=== PATIENT | female | born 1990 ===

== ENCOUNTER 2017-05-11 11:26 | Emergency (ER) | payer MEDICAID ==
[2017-05-11 12:33] VITALS: BMI 35.6
[2017-05-11 14:07] LABS: ALB/GLOB RATIO 1.1 (1.0-2.1); ALKALINE PHOSPHATASE 79 U/L (38-126); ALT/SGPT 19 U/L (9-52); AST/SGOT 20 U/L (14-36); BILIRUBIN,TOTAL 0.3 mg/dl (0.2-1.3); BLOOD UREA NITROGEN 8 mg/dl (7-17); CALCIUM 8.5 mg/dL (8.4-10.2); CARBON DIOXIDE 22 mmol/L (22-30); CHLORIDE 106 mmol/L (98-107); GFR AFRICAN-AMERICAN > 60; GLUCOSE,RANDOM 78 mg/dL (65-105); POTASSIUM 4.1 MMOL/L (3.6-5.0); SODIUM 137 mmol/l (132-148); TOTAL PROTEIN 6.6 G/DL (6.3-8.2)
[2017-05-11 14:13] LABS: HEMATOCRIT 34.5 % (34.0-47.0); MEAN CELL VOLUME 94.2 fl (81.0-99.0); MEAN CORPUSCULAR HEMOGLOBIN 32.4 pg (27.0-31.0); MEAN CORPUSCULAR HGB CONC 34.4 g/dL (33.0-37.0); RED CELL DISTRIBUTION WIDTH 13.4 % (11.5-14.5); WHITE BLOOD COUNT 8.1 K/uL (4.8-10.8)
--- NOTE | 2017-05-11 14:32 | OBHP ---
Datetime: 05/11/2017 13:37 IP Adm Impression: , intrauterine IP Adm Impression Other: evaluate for placental abruption s/p fall IP Admit Plan: Observation/Evaluation Admit Comment, IP Provider: 26 y/o at 32w4d EDC 07/02/17 by LMP 09/25/16 c/w 2nd TM u/s. Here 1 day after tripping and falling on street, landing on R side of body. +fm, no lof, no vb, no ctx. P atient broke fall with R side of body, R arm and R leg, did not sustain direct trauma to abdomen. Did n't come in right away because she felt fine, this morning she woke up with pain on R knee, R hip and R arm. She also felt low pelvic presssure, no contractions, no pelvic pain. Patient denies vaginal b leeding. PNC: [facility] Dr. Tala Guy, tx of care at 15wks, I reviewed the records and they are up to date PNI: 1. hx of prior myomectomy 2013, patient planned to have primary c/s at 38wks with Dr. Harmon 2. hypothyroidism, well controlled with levothyroxine 100mcg daily 3. lived and traveled to [place] during , Zika test declined by [facility] 4. pap NILM/HPV pos 2013 (patient 23yo), Negative pap 2014 and 2015 as per patient. Current Pap 2016 NILM HPV positive (16/18 negative)- Repeat pap 11/2017 5. UTI completed abx, DEBORAH neg 12/2016 PNL: O+, hiv neg, rpr nr, RI, hbsag neg, H/H 11.3/33.2, TSH 0.97, FT4 0.85 PMhx: hypothyroidism PShx: myomectomy 2013 All: denies Meds: levothyroxine 100mcg daily Social Hx: denies toxic habits x 3, not working, denies DV Exam: see above A/P: 32w4d here s/p mechanical fall r/o abruption 1. Clinically stable, check U/S for placenta visualization, NST reactive, check labs for fibrinoge n and coags 2. Pelvic pressure, not deb, check ua/ucx 3. Bony pain on R knee, check xray with abd shield 4. Pending testing, anticipate DC home with outpatient f/u. Pelvic Type - PN: Not Done Extremities - PN: Abnormal Abdomen - PN: Normal Back - PN: Normal Breast - PN: Not Done Lungs - PN: Normal Heart - PN: Normal Thyroid - PN: Not Done Neurologic - PN: Normal HEENT - PN: Normal General - PN: Normal FHR - Baseline A Provider: 140 Membranes, Provider: Intact Contraction Comments Provider: None Comments, ACOG Physical Exam: tenderness on R upper arm on muscle no bony tenderness tenderness on R knee patella and lateral aspect of joint, stable joint R hip FROM, nontender IP Hx Assessment: The History has been Reviewed and is Current IP Chief Complaint: Maternal discomfort; Trauma/Fall NICHD Variability Prov Fetus A: Moderate 6-25bpm NICHD Accel Fetus A IP Provider: 15X15 FHR Category Provider Fetus A: Category I NICHD Decel Fetus A IP Provider: None Genitourinary Exam: Not Done DTRs - PN: Not Done
[2017-05-11 14:38] LABS: PARTIAL THROMBOPLASTIN TIME 27.8 Seconds (25.6-37.1)
--- NOTE | 2017-05-11 15:39 | US ---
PROCEDURE: OB Pelvic Ultrasound HISTORY: 32W4D s/p fall r/o placenta abruption COMPARISON: None available. FINDINGS: Intrauterine gestation is identified with imaging performed to assist in biophysical profile performance. Positive physical profile score is 8/8. breathing movements, 2. movements, 2. tones, 2. Amniotic fluid, 2 Amniotic fluid index measures 16.45 cm. Cardiac activity is recorded 134.6 beats per minute. A fundal placenta is appreciated as imaged without definite placental abruption appreciated. IMPRESSION: A single viable intrauterine gestation is identified in cephalic lie with a fundal placenta and no definite evidence of a placental abruption at this time. Biophysical profile was the primary reason for this examination with standard biometry and anatomical survey not performed. Biophysical profile measures 8/8. Details listed above. Follow-up standard obstetric ultrasound can be performed as clinically warranted.
[2017-05-11 15:55] LABS: RBC URINE 1 /hpf (0-3); URINE BILIRUBIN NEGATIVE (NEGATIVE); URINE BLOOD NEGATIVE (NEGATIVE); URINE COLOR YELLOW (YELLOW); URINE GLUCOSE (UA) NEG (Normal); URINE KETONE NEGATIVE (NEGATIVE); URINE LEUKOCYTE ESTERASE NEG Leu/uL (Negative); URINE PROTEIN NEGATIVE (NEGATIVE); URINE UROBILINOGEN 0.2-1.0 mg/dL (0.2-1.0); WBC URINE 1 /hpf (0-5)
--- NOTE | 2017-05-11 16:39 | OBHP ---
Datetime: 05/11/2017 16:36 IP Admit Plan: Discharge home Admit Comment, IP Provider: patient re-evaluated, denies any contractions, abd pain or pressure. BPP 8/8 and reactive NST No sign of placental abruption in u/s or labs. Strict kickcount, PTL and abrution precautions given to patient. xray of knee not back yet, will follow up outpatient. patient ambulating without difficulty. has f/u appt with PMD in 1 week. DC home
--- NOTE | 2017-05-11 17:12 | RAD ---
PROCEDURE: Right Knee Radiographs. HISTORY: s/p fall, tender knee cap COMPARISON: None. FINDINGS: BONES: Normal. No fracture. JOINTS: Normal. No osteoarthritis. JOINT EFFUSION: None. OTHER FINDINGS: None. IMPRESSION: Normal radiographs of the right knee.
[2017-05-12 01:39] VITALS: BP 105/58; PULSE 69; RESP 20; TEMP 98.2; O2SAT 100
== END 2017-05-11 17:00 | disposition home or self-care (01) ==
LOC: H.EROB2 11:26
DX: O26.93 Pregnancy related conditions, unspecified, third trimester (principal); M25.561 Pain in right knee; Z04.3 Encounter for examination and observation following other accident; W01.0XXA Fall on same level from slipping, tripping and stumbling without subsequent striking against object, initial encounter; Y92.410 Unspecified street and highway as the place of occurrence of the external cause; Z3A.32 32 weeks gestation of pregnancy

== ENCOUNTER 2017-06-20 07:29 | Inpatient (IN) | payer MEDICAID ==
[2017-06-20] MEDS: Lactated Ringer's 1,000 ML IV SCH ×2 (07:30→08:05)
[2017-06-20 07:57] VITALS: O2SAT 99
[2017-06-20] MEDS ORDERED: ceFAZolin IV 2 gm in Dextrose 2 GM/50 ML BAG IVPB ONE (08:00)
[2017-06-20] MEDS ORDERED: Oxytocin 30 UNITS in Sodium Chloride 0.9% 500 ML IV SCH (08:00)
[2017-06-20 08:13] LABS: BASO # 0.1 K/uL (0.0-0.2); EOS # 0.2 K/uL (0.0-0.7); EOS % 1.9 % (0.0-4.0); HEMATOCRIT 39.2 % (34.0-47.0); LYMPH # 1.7 K/uL (1.0-4.3); LYMPH % 19.4 % (20.0-40.0); MEAN CELL VOLUME 94.6 fl (81.0-99.0); MEAN CORPUSCULAR HEMOGLOBIN 31.2 pg (27.0-31.0); MEAN PLATELET VOLUME 11.3 fl (7.2-11.7); MONO # 0.7 K/uL (0.0-0.8); MONO % 7.7 % (0.0-10.0); NEUT # 6.1 K/uL (1.8-7.0); NRBC % 0.1 % (0.0-0.0); RED CELL DISTRIBUTION WIDTH 14.2 % (11.5-14.5); WHITE BLOOD COUNT 8.7 K/uL (4.8-10.8)
[2017-06-20] MEDS ORDERED: Phenylephrine 10 mg/ml Inj ONE (09:33)
[2017-06-20] MEDS ORDERED: Oxycodone/Acetaminophen 5/325 mg Tab PO PRN ×4 (10:54→14:20)
[2017-06-20] MEDS ORDERED: DiphenhydrAMINE 50 mg/ml Inj IVP PRN ×2 (10:54→14:20)
[2017-06-20] MEDS ORDERED: Morphine 5 MG/ML SYRINGE IV PRN (10:54)
--- NOTE | 2017-06-20 11:27 | OBADHP ---
Datetime: 06/20/2017 07:36 Admit Comment, IP Provider: 26 yr at 38.2 wks GA, hx fundal myomectomy, hypothyroidism on synth roid, obesity, AC measuring 2 weeks ahead, presents to L_D for scheduled primary . Pat ient denies vaginal bleeding, leakage of fluid or contractions. + movement. Denies any complica tion throughout this . labs: Rubella Immune, blood O +, Rh positive, Hep B negative, 3rd tri labs wnl: HIV neg, RPR nonreactive, PPD negative, Gc/Ch neg/neg, GBS negative ObGynHx: pap NILM HPV positive in 2013 and 11/2016, 1 x SAB PMHx: hypothyroidism, obesity PSurgHx: fundal myomectomy 2013 SocHx: denies Etoh, drugs and smoking FMHx: mother HTN Medications: Synthroid 100 mcg PO QD Allergies: NKDA PE: General: in no acute distress HEENT: normocephalic, atraumatic, PERRL, EOMI Cardiovascular: normal S1 S2, no murmurs/rubs or gallops Lungs: clear to auscultation bilaterally Abd: normal bowel sounds, nontender Ext: trace LE edema bilaterally Monitoring: FHR 130 bpm with moderate variability 6-25 bpm, accelerations 15x15, Category I tracing A: 26 yr at 38.2 wks GA, hx fundal myomectomy, hypothyroidism on synthroid, obesity, AC measuring 2 weeks ahead, presents to L_D for scheduled primary for hx fundal myomectomy. P: -Admit to labor and delivery -NPO, IV insertion, 2L LR, CBC, Type and screen -Continuous monitoring -Anesthesia consult -Ancef 2gm 60 min prior to , SCD's, Surgical prep -Influenza vaccine and TDaP vaccine Tala Guy M.D. PGY2 Extremities - PN: Normal Abdomen - PN: Normal Back - PN: Normal Lungs - PN: Normal Heart - PN: Normal Thyroid - PN: Normal Neurologic - PN: Normal HEENT - PN: Normal General - PN: Normal Presentation-Admit: Vertex FHR - Baseline A Provider: 130 Gestation - Est Wks by US: 38.2 Vital Signs Provider: Reviewed; Within Normal Limits IP Chief Complaint: Scheduled Section NICHD Variability Prov Fetus A: Moderate 6-25bpm NICHD Accel Fetus A IP Provider: 15X15 FHR Category Provider Fetus A: Category I NICHD Decel Fetus A IP Provider: None DTRs - PN: Normal Datetime: 05/11/2017 16:36 IP Admit Plan: Discharge home Datetime: 05/11/2017 13:37 IP Adm Impression Other: evaluate for placental abruption s/p fall Pelvic Type - PN: Not Done Breast - PN: Not Done Membranes, Provider: Intact Contraction Comments Provider: None Comments, ACOG Physical Exam: tenderness on R upper arm on muscle no bony tenderness tenderness on R knee patella and lateral aspect of joint, stable joint R hip FROM, nontender IP Hx Assessment: The History has been Reviewed and is Current Genitourinary Exam: Not Done IP Adm Impression: , intrauterine
--- NOTE | 2017-06-20 11:29 | OBDS ---
DELIVERY PERSONNEL Delivery Doctor: Art Ford MD Screedman: Arrieta, Genevieve CAMPOS Anesthesiologist: Wil Godwin MD Resident: Dr Suleiman Guy MATERNAL INFORMATION Delivery Anesthesia: Spinal Medications in Delivery: Ancef Estimated Blood Loss (ml): 800 Placenta Cultured: No Maternal Complications: None Provider Comments: See Operative report LABOR SUMMARY No. Babies in Womb: 1 LABOR INFORMATION Reason for Induction: Not Applicable STAGES OF LABOR Stage 3 hrs: 0 Stage 3 min: 0 CSECTION DELIVERY Primary Indication: Previous Myomectomy CSection Urgency: Non Elective CSection Incidence: Primary Labor: No Labor Elective: Nonelective CSection Incision: Lower Uterine Transverse BABY A INFORMATION Delivery Date/Time: 06/20/2017 10:19 Method of Delivery: Born in Route : No : N/A Forceps: N/A Vacuum Extraction: N/A Shoulder Dystocia : No SHOULDER DYSTOCIA BABY A Delivery Date/Time: 06/20/2017 10:19 PRESENTATION/POSITION BABY A Presentation: Cephalic PLACENTA INFORMATION BABY A Placenta Delivery Time : 06/20/2017 10:19 Placenta Method of Delivery: Manual Removal Placenta Status: Delivered SCORES BABY A Heart Rate 1 min: >100 bpm Resp Effort 1 min: Good Cry Reflex Irritability 1 min: Cough or Sneeze or Pulls Away Muscle Tone 1 min: Active Motion Color 1 min: Body Waka, Extremities Blue Resuscitation Effort 1 min: N/A SCORE 1 MIN: 9 Heart Rate 5 min: >100 bpm Resp Effort 5 min: Good Cry Reflex Irritability 5 min: Cough or Sneeze or Pulls Away Muscle Tone 5 min: Active Motion Color 5 min: Body Waka, Extremities Blue Resuscitation Effort 5 min: N/A SCORE 5 MIN: 9 INFORMATION BABY A Gestational Age at Delivery: 38.2 Gestational Status: Term Infant Outcome : Liveborn Condition : Stable Sex: Male IDENTIFICATION/MEDS BABY A ID Band Number: [id number] ID Band Location: Right Leg; Right Arm WEIGHT/LENGTH BABY A Birthweight (gms): 3515 Infant Weight (lb): 7 Weight (oz): 12 CORD INFORMATION BABY A No. Cord Vessels: 3 Nuchal Cord : Around Neck x1, Loose Cord Blood Taken: Yes Suction: Mouth
[2017-06-20] MEDS ORDERED: Lactated Ringer's 1,000 ML IV SCH ×2 (12:00→14:20)
[2017-06-20] MEDS: Oxycodone/Acetaminophen 5/325 mg Tab PO PRN (17:13)
[2017-06-20 19:20] VITALS: BMI 35.6
[2017-06-21] MEDS: Levothyroxine 100 MCG TAB PO SCH (06:38)
[2017-06-21 06:52] LABS: BASO # 0.1 K/uL (0.0-0.2); BASO % 0.7 % (0.0-2.0); EOS # 0.1 K/uL (0.0-0.7); EOS % 1.2 % (0.0-4.0); HEMATOCRIT 30.3 % (34.0-47.0); LYMPH # 0.8 K/uL (1.0-4.3); MEAN CELL VOLUME 95.2 fl (81.0-99.0); MEAN CORPUSCULAR HEMOGLOBIN 31.3 pg (27.0-31.0); MEAN CORPUSCULAR HGB CONC 32.9 g/dL (33.0-37.0); MEAN PLATELET VOLUME 11.2 fl (7.2-11.7); MONO # 0.5 K/uL (0.0-0.8); NEUT # 6.8 K/uL (1.8-7.0); NEUT % 82.1 % (50.0-75.0); NRBC % 0.1 % (0.0-0.0); WHITE BLOOD COUNT 8.3 K/uL (4.8-10.8)
--- NOTE | 2017-06-21 07:30 | OBPPN ---
Datetime: 06/21/2017 06:11 PP Pain Prov: Within normal limits PP Nausea Prov: Denies PP Flatus Prov: Yes PP BM Prov: No PP Breasts Prov: Not Done PP Heart Prov: Normal PP Lungs Prov: Normal PP Abdomen/Uterus Prov: Normal PP Lochia Prov: Normal PP Vulva/Perineum Prov: Not Done PP CVA Tenderness Prov: Not Done PP Extremities Prov: Normal PP C/S Incision Prov: Normal PP Progress Prov: Normal PP Comments Phys Exam Prov: Remove dressing today PP Impression Prov: Normal progression PP Plan Prov: Continue present management PP Progress Note Prov: POD#1, 26 y/o F , delivered @ 38.2 wks to a male infant via on 06/20/17. S: pt seen and examined bedside this AM, s/p , comfortable in bed. No acute overnight carlos nts. baby. Pain controlled with meds. Pt is not yet ambulating. Breast feeding baby wit hout difficulties. Tolerating liquid diet, will advance to regular diet this AM. Lochia wnl, passing gas but denies BM. Denies fever, chills, headache, chest pain, dyspnea, palpitations, n/v/d/c and rem ains afebrile. O: VS stable GEN: AA, NAD Cardio: S1S2 no M/G/R Resp: vesicular breathing b/l Abdomen: Dressing is on, clean and dry Fundus @ the umbilicus and firm. BS+ Neuro: AAO x 3 Ext: no edema noted, no calf tenderness Assessment/Plan: 26 y/o F , delivered @ 38.2 wks to a male infant via on 06/20/17. Doing well POD1. OOB with caution SCD's for DVT prophylaxis Percocet 5/325mg 1-2 tablets po q6 for mod/sev pain Ibuprofen for mild-mod pain Encourage and ambulation Senakot 17.2mg PO qHS Will remove dressing today Follow up post op CBC today --- Rebecca Nunez, PGY-1 OB Hospitalist Addendum: Pt seen and examined by me. Agree w/ above. POD 1 s/p primary c/s, tara g well, breast feeding. Continue current management. (ES) IP PP Procedures: None Vital Signs Provider PP: Reviewed
[2017-06-21] MEDS: Oxycodone/Acetaminophen 5/325 mg Tab PO PRN ×2 (09:03→16:07)
[2017-06-21] MEDS ORDERED: Influenza Vaccine 18yr & older 0.5 ML/45 MCG SYR IM ONE (10:00)
[2017-06-22] MEDS: Levothyroxine 100 MCG TAB PO SCH (06:10)
[2017-06-22] MEDS: Oxycodone/Acetaminophen 5/325 mg Tab PO PRN (23:11)
[2017-06-23] MEDS: Levothyroxine 100 MCG TAB PO SCH (06:23)
--- NOTE | 2017-06-23 09:53 | OBDCSUM ---
Datetime: 06/23/2017 06:21 Discharged to, Provider: Home Follow up at, Provider: [facility] Disch Instr Activity: Normal activity Disch Instr Diet: Regular Discharge Instructions, Provider: Routine instructions given Discharge Diagnosis, Provider: Term Delivered Discharge Time: 06/23/2017 10:00 Follow up in weeks, Provider: WC visit 06/26@2:20pm, get NB apt in 3-5 days and PP in 4-6weeks Disch Referrals: None Contraception discussed, Prov: Yes Disch Activity Restrictions: No exercising; No lifting; Minimize stair-climbing; No sexual activity; Nothing in vagina - [place], tampons, douche Discharge Comment, Provider: 26 y/o female, , Delivered @ 38.2 to a male via [place] C-sectio n 0n 06/20/17. Uncomplicated course. Mother is doing well, Lochia is minimal, pt is ambula ting, tolerating PO regular diet, +/+ flatus/BM and remains afebrile. Baby is doing well. 1. Encourage 2. Continue PNV 1 tab/day 3. Ibuprofen/Percocet for pain and Senokot for constipation. 4. Ambulatory with caution, nothing per vagina, no heavy lifting, avoid stairs, if excessive bleed ing or fever without relief from Tylenol go to ED 5. F/U at [facility] for WC visit on 06/26/17@2:20pm and PP visit call to schedule Follow up shell molder for Baby in 3-4 days Patient is stable for d/c home --- Rebecca Nunez, PGY-1 OB Hospitalistnote; Pt seen by me on rounds this AM. Agree with note. MAHNDO Contraception after Delivery: Undecided
--- NOTE | 2017-06-23 09:53 | OBPPN ---
Datetime: 06/23/2017 06:17 PP Pain Prov: Within normal limits PP Nausea Prov: Denies PP Flatus Prov: Yes PP BM Prov: Yes PP Breasts Prov: Not Done PP Heart Prov: Normal PP Lungs Prov: Normal PP Abdomen/Uterus Prov: Normal PP Lochia Prov: Normal PP Vulva/Perineum Prov: Not Done PP CVA Tenderness Prov: Normal PP Extremities Prov: Normal PP C/S Incision Prov: Normal PP Progress Prov: Normal PP Impression Prov: Normal progression PP Plan Prov: Continue present management; Discharge PP Progress Note Prov: POD#3, 26 y/o F , delivered @ 38.2 wks to a male infant via on 06/20/17. S: Pain controlled with meds. Pt is ambulating. Breast feeding baby without difficulties. Tolerat ing regular diet. Lochia wnl, passing gas and have had BM. Denies fever, chills, headache, chest pain , dyspnea, palpitations, n/v/d/c and remains afebrile. O: VS stable GEN: AA, NAD Cardio: S1S2 no M/G/R Resp: vesicular breathing b/l Abdomen: incision clean, dry and intact Fundus @ the umbilicus and firm. BS+ Neuro: AAO x 3 Ext: no edema noted, no calf tenderness Assessment/Plan: 26 y/o F , delivered @ 38.2 wks to a male infant via on 06/20/17. Doing well POD3. U ncomplicated course. Discharge home today Rx Percocet 5/325mg 1-2 tablets po q6 for mod/sev pain Rx Ibuprofen for mild-mod pain Encourage and ambulation Rx Senakot 17.2mg PO qHS Instructed to follow up WC, PP and NB visits with after discharge --- Rebecca Nunez, PGY-1 OB Hospitalistnote; Pt seen by me on rounds this AM. Agree with note. LEELEE IP PP Procedures: None Vital Signs Provider PP: Reviewed; Within Normal Limits
[2017-06-23 22:54] VITALS: BP 112/57; PULSE 64; RESP 19; TEMP 98.5
--- NOTE | 2017-06-26 05:38 | OP ---
PROCEDURE DATE: 06/20/2017 PREOPERATIVE DIAGNOSIS: Term at 38 weeks with previous fundal myomectomy. POSTOPERATIVE DIAGNOSIS: Term at 38 weeks with previous fundal myomectomy, delivered. PROCEDURE: Primary low-transverse section. SURGEON: Juwan Ford MD INTERVENTIONAL CARDIOLOGIST: Cj Dale MD ESTIMATED BLOOD LOSS: 800 mL. URINE OUTPUT: 175 mL, clear, at the end of procedure. INTRAVENOUS FLUID: 1300 mL Lactated Ringer's. FINDINGS: A live male with Apgars of 9 and 9, weight 3515 g, delivered in vertex presentation. Amniotic fluid clear. Grossly normal tubes, ovaries and uterus. COMPLICATIONS: None. CLOSURE: Subcuticular. DESCRIPTION OF PROCEDURE: The patient was taken to the operating room and given spinal anesthesia without difficulty. She was then prepped and draped in the normal sterile fashion in a dorsal supine position with leftward tilt. A Pfannenstiel skin incision was then made with the scalpel and carried through to the underlying fascia with the Bovie. The fascia was incised in the midline and the incision was extended laterally using the Bovie. The inferior aspect of the fascial incision was then grasped with Joaquín clamps, elevated and the underlying rectus muscles were dissected off sharply with the Bovie, then bluntly. The attention was then turned to the superior aspect of the fascial incision, which in a similar fashion, was dissected off with the Bovie, then bluntly. The rectus muscles were meticulously in the midline using the scalpel and the peritoneum was identified and entered bluntly. This incision was extended laterally, superiorly and inferiorly paying close attention to the bladder. The bladder blade was inserted. The vesicouterine peritoneum was identified, tented up and entered with Metzenbaum scissors, and this incision was extended laterally and a bladder flap was created digitally. The bladder blade was reinserted and the lower uterine segment was identified and entered in a transverse fashion with the scalpel. This incision was extended cephalocaudally bluntly. The membranes were ruptured and infant was delivered atraumatically. The nose and mouth were suctioned on the abdomen. The cord was doubly clamped and cut, and the infant was handed off to the awaiting cream gatherer. The cord blood was then taken. The placenta was extracted spontaneously and intact. The uterus was exteriorized and cleared off all clots and debris. The uterine incision was then closed with 1 Vicryl in a running locked fashion, and a second layer was then placed for imbrication. Good hemostasis was noted. Copious irrigation was performed. The uterus was returned to the abdomen. The gutters were cleared off all clots. Inspection of the uterine incision again revealed good hemostasis. The peritoneum was then closed with 2-0 Vicryl in a running fashion and 3 horizontal mattress sutures were then placed and good hemostasis was noted. The fascia was approximated using 0 Vicryl in a running fashion bilaterally to the midline. The Bovie was used to obtain good hemostasis on the subcutaneous fat and this layer was closed with a 3-0 plain suture. The skin was then closed with 3-0 Monocryl on a Geo needle for a subcuticular stitch and the incision was then covered with Steri-Strips and a sterile dressing. The patient tolerated the procedure well. Sponge, lap and needle counts were correct x4. Ancef 2 g was given preoperatively. The patient was then taken to the recovery room in stable condition. There was no injury to the bladder, bowel, ureter or baby. Due to the nature of this case, an assistant laboratory director was requested and my assistant laboratory director remained for the entire procedure and was present from the initial incision until the patient's transfer to the recovery room. He assisted with entry into the abdominal cavity with providing good exposure, to ensure good hemostasis and closure of the layers of the abdominal wall including the skin. This procedure could not have been performed without his assistance. Juwan Ford MD DOMI
== END 2017-06-23 15:31 | disposition home or self-care (01) | DRG 371 ==
LOC: H.L&D 07:29 → H.OB/GYN 13:50
PROVIDERS: ADMIT Obstetrics & Gynecology; ATTEND Obstetrics & Gynecology
PROC: 10D00Z1 Extraction of Products of Conception, Low, Open Approach (ICD-10-PCS; principal; 2017-06-20)
PROC: 4A1HXCZ Monitoring of Products of Conception, Cardiac Rate, External Approach (ICD-10-PCS; 2017-06-20)
PROC: 3E0234Z Introduction of Serum, Toxoid and Vaccine into Muscle, Percutaneous Approach (ICD-10-PCS; 2017-06-21)
DX: O99.284 Endocrine, nutritional and metabolic diseases complicating childbirth (principal); E03.9 Hypothyroidism, unspecified; O99.214 Obesity complicating childbirth; O69.81X0 Labor and delivery complicated by cord around neck, without compression, not applicable or unspecified; Z3A.38 38 weeks gestation of pregnancy; Z37.0 Single live birth; Z23 Encounter for immunization